=== PATIENT | female | born 1980 | race Caucasian/White ===

== ENCOUNTER → 2019-12-28 | Outpatient (CLI) | payer OTHER | LOC: COL.RAD | DX: K63.9 Disease of intestine, unspecified (principal) | CPT/HCPCS: Q9967 ==

== ENCOUNTER → 2020-01-16 | Outpatient (CLI) | payer OTHER | LOC: COL.RAD 08:10 | DX: K82.4 Cholesterolosis of gallbladder (principal); R93.89 Abnormal findings on diagnostic imaging of other specified body structures ==

== ENCOUNTER → 2021-09-03 | Outpatient (CLI) | payer OTHER | LOC: COL.RAD 08:30 | DX: K82.4 Cholesterolosis of gallbladder (principal); K21.9 Gastro-esophageal reflux disease without esophagitis ==

== ENCOUNTER → 2021-09-13 | Outpatient (CLI) | payer OTHER | LOC: MC.RAD 10:08 | DX: Z12.31 Encounter for screening mammogram for malignant neoplasm of breast (principal) ==